=== PATIENT | male | born 1945 | race Caucasian/White ===

== ENCOUNTER → 2016-11-24 | Outpatient (CLI) | payer MEDICARE, OTHER | END | disposition home or self-care (01) | LOC: PCVCIMAG 13:03 | PROVIDERS: ATTEND Internal Medicine Cardiovascular Disease | DX: I25.10 Atherosclerotic heart disease of native coronary artery without angina pectoris (principal); I35.0 Nonrheumatic aortic (valve) stenosis; E78.00 Pure hypercholesterolemia, unspecified; I10 Essential (primary) hypertension; R07.9 Chest pain, unspecified; R11.0 Nausea; R00.1 Bradycardia, unspecified; Z95.5 Presence of coronary angioplasty implant and graft | CPT/HCPCS: 80061; 93005; 93306; G0463 ==

== ENCOUNTER → 2017-06-04 | Outpatient (CLI) | payer MEDICARE, OTHER | END | disposition home or self-care (01) | LOC: PCVCCLINIC 13:36 | PROVIDERS: ATTEND Internal Medicine Cardiovascular Disease | DX: I25.10 Atherosclerotic heart disease of native coronary artery without angina pectoris (principal); E78.00 Pure hypercholesterolemia, unspecified; I35.0 Nonrheumatic aortic (valve) stenosis; I10 Essential (primary) hypertension; R00.1 Bradycardia, unspecified; Z79.82 Long term (current) use of aspirin; Z79.899 Other long term (current) drug therapy | CPT/HCPCS: 80061; 93005; G0463 ==

== ENCOUNTER → 2018-02-09 | Outpatient (CLI) | payer MEDICARE, OTHER | END | disposition home or self-care (01) | LOC: PCVCIMAG 14:37 | DX: I25.10 Atherosclerotic heart disease of native coronary artery without angina pectoris (principal); I35.0 Nonrheumatic aortic (valve) stenosis; I77.9 Disorder of arteries and arterioles, unspecified; I10 Essential (primary) hypertension; E78.00 Pure hypercholesterolemia, unspecified; Z79.82 Long term (current) use of aspirin | CPT/HCPCS: 93005; 93306; G0463 ==

== ENCOUNTER → 2018-09-16 | Outpatient (CLI) | payer MEDICARE, OTHER ==
--- NOTE | 2018-09-16 13:32 | PCVCIMAG ---
EXAM: BILATERAL CAROTID DUPLEX INDICATION: Carotid Occlusive Disease. FINDINGS: Doppler Measurements (centimeters per second): RIGHT: Peak CCA-92, Peak ECA-86, Diastolic ICA-16, Peak ICA-71, ICA/CCA Ratio-0.8. LEFT: Peak CCA-87, Peak ECA-79, Diastolic ICA-14, Peak ICA-82, ICA/CCA Ratio-0.9. RIGHT CAROTID: The carotid bulb has mild plaque. The proximal internal carotid artery shows <40% stenosis. The common carotid artery shows no significant stenosis. The external carotid artery shows no significant stenosis. LEFT CAROTID: The carotid bulb has mild plaque. The proximal internal carotid artery shows <40% stenosis. The common carotid artery shows no significant stenosis. The external carotid artery shows no significant stenosis. Antegrade flow in both vertebral arteries. IMPRESSION: <40% stenosis of the right internal carotid artery with mild plaque. <40% stenosis of the left internal carotid artery with mild plaque. LOC:[place] [id number]
--- NOTE | 2018-09-16 17:31 | PCVCIMAG ---
APPROVED REPORT Study performed: 09/16/2018 13:20:10 EXAM: Comprehensive 2D, Doppler, and color-flow Echocardiogram Patient Location: Echo lab Status: routine BSA: 1.93 HR: 63 bpmBP: 150/82 mmHg Rhythm: NSR Other Information Study Quality: Adequate Risk Factors: Cardiac Risk Factors: HTN Indications CAD severe aortic stenosis 2D Dimensions IVSd: 11.77 (7-11mm)LVOT Diam: 21.49 (18-24mm) LVDd: 39.21 mm PWd: 11.22 (7-11mm)Ascending Ao: 32.17 (22-36mm) LVDs: 26.39 (25-40mm) Left Atrium: 38.75 (27-40mm) Aortic Root: 29.81 mm LV Single Plane 4CH: 66.58 % LV Single Plane 2CH: 71.16 % Biplane EF: 69.8 % Volumes Left Atrial Volume (Systole) Single Plane 4CH: 46.45 mLSingle Plane 2CH: 75.28 mL LA ESV Index: 33.00 mL/m2 Aortic Valve AoV Peak Jasvir.: 4.86 m/s AO Peak Gr.: 94.30 mmHgLVOT Max P.36 mmHg AO Mean Gr.: 56.71 mmHgLVOT Mean P.45 mmHg AO V2 Mean: 3.59 m/sLVOT Max V: 1.13 m/s AO V2 VTI: 135.05 cmLVOT Mean V: 0.72 m/s TRISHA (VTI): 0.77 [id number] V1 VTI: 28.51 cm TRISHA Vmax: 0.84 cm2 SV (LVOT): 103.40 mL Mitral Valve E/A Ratio: 1.5 MV Decel. Time: 269.17 ms MV E Max Jasvir.: 0.78 m/s MV A Jasvir.: 0.52 m/s IVRT: 76.12 ms Pulmonary Valve PV Peak Jasvir.: 1.10 m/sPV Peak Gr.: 4.84 mmHg Pulmonary Vein P Vein S: 0.66 m/sP Vein A: 0.46 m/s P Vein D: 0.78 m/sP Vein A Dur.: 159.2 msec P Vein S/D Ratio: 0.85 Tricuspid Valve TR Peak Jasvir.: 2.96 m/s TR Peak Gr.: 35.07 mmHg Left Ventricle The left ventricle is normal size. There is normal LV segmental wall motion. Mild concentric left ventricular hypertrophy. Left ventricular systolic function is normal. The left ventricular ejection fraction is within the normal range. LVEF is 60-65%. Grade I - abnormal relaxation pattern. Right Ventricle The right ventricle is normal size. The right ventricular systolic function is normal. Atria The left atrium size is normal. The right atrium size is normal. Aortic Valve The aortic valve is severely calcified. Trace aortic regurgitation. There is severe valvular aortic stenosis. Calculated aortic valve area is .8 cm2 with maximum pressure gradient of 94 mmHg and mean pressure gradient of 56 mmHg. Mitral Valve The mitral valve is normal in structure. Trace mitral regurgitation. No evidence of mitral valve stenosis. Tricuspid Valve The tricuspid valve is normal in structure. Mild to moderate tricuspid regurgitation with PAP of 42 mmHg. Pulmonic Valve The pulmonary valve is normal in structure. Trace pulmonic regurgitation. Great Vessels The aortic root is normal in size. IVC is normal in size and collapses >50% with inspiration. Pericardium There is no pericardial effusion. There is no pleural effusion. <Conclusion> The left ventricle is normal size. Mild concentric left ventricular hypertrophy. LVEF is 60-65%. Grade I - abnormal relaxation pattern. The right ventricle is normal size. The left atrium size is normal. The aortic valve is severely calcified. Trace aortic regurgitation. There is severe valvular aortic stenosis. Calculated aortic valve area is .8 cm2 with maximum pressure gradient of 94 mmHg and mean pressure gradient of 56 mmHg. Trace mitral regurgitation. Mild to moderate tricuspid regurgitation with PAP of 42 mmHg. The aortic root is normal in size. There is no pericardial effusion.
== END | disposition home or self-care (01) ==
LOC: PCVCIMAG 13:02
PROVIDERS: ATTEND Internal Medicine Cardiovascular Disease
DX: I65.23 Occlusion and stenosis of bilateral carotid arteries (principal); I07.1 Rheumatic tricuspid insufficiency; I25.10 Atherosclerotic heart disease of native coronary artery without angina pectoris; I10 Essential (primary) hypertension; E78.00 Pure hypercholesterolemia, unspecified; I35.0 Nonrheumatic aortic (valve) stenosis; I77.9 Disorder of arteries and arterioles, unspecified; Z79.82 Long term (current) use of aspirin
CPT/HCPCS: 36415; 80061; 93005; 93306; 93880; G0463

== ENCOUNTER → 2018-10-06 | Outpatient (CLI) | payer MEDICARE, OTHER ==
[~2018-10-06] MED LIST: BENZOCAINE ONE 20% MUCOSAL SPRAY.; IV NORMAL SALINE 500ML BAG 500 ML ONE; MIDAZOLAM HCL/PF 2 MG/2 ML VIAL. ONE; fentaNYL PF VIAL 100 MCG/2 ML VIAL ONE
--- NOTE | 2018-10-06 12:25 | PCVCIMAG ---
APPROVED REPORT Study performed: 10/06/2018 09:06:19 EXAM: Transesophageal Echocardiogram Patient Location: CV Room #: 1 Status: routine BSA: 1.91 HR: 56 bpmBP: 169/78 mmHg Rhythm: NSR Other Information Study Quality: Good Indications Aortic Valve Disease Echo Enhancing Agent Indication: Rule out Shunt Agent(s) / Amount(s) Used: Agitated Saline 10 cc Comments: Negative contrast study for shunt flow. 2D Dimensions LVOT Diam: 21.00 (18-24mm) Sinotubular Junction: 25.00 mm Ascending Ao: 30.00 (22-36mm) Procedure After obtaining informed consent, patient underwent transesophageal echo in the [facility]. Type of Sedation : Conscious Sedation Sedation was administered by Holly Vickers RN. Sedation start time: 09:31 Case end Time: 09:43 Sedation was achieved intravenously with: Versed (3 mg) Fentanyl (75 mcg) Transesophageal probe was inserted and advanced into esophagus without difficulty by Fredy Amaya MD. Echo enhancement indication: R/O Septal defect. Echo enhancement agent administered: Agitated Saline The NICK was performed without complications. Throughout the procedure, the blood pressure, pulse oximetry, cardiac rhythm, and rate were monitored. The patient tolerated the procedure without adverse effects. Recovery from conscious sedation was uneventful and vital signs were stable. Left Ventricle The left ventricle is normal size. There is normal LV segmental wall motion. There is normal left ventricular wall thickness. The left ventricular systolic function is normal. The left ventricular ejection fraction is within the normal range. LVEF is 60-65%. Right Ventricle The right ventricle is normal size. The right ventricular systolic function is normal. Atria The left atrium size is normal. No thrombus is visualized in the left atrium or appendage. No shunting by contrast bubble injection The right atrium size is normal. Aortic Valve Aortic valve is trileaflet, densely calcified leaflets with markedly reduced excursion . No aortic regurgitation is present. Severe aortic stenosis. Mitral Valve Mitral valve leaflets are mildly sclerotic Mild mitral regurgitation. No evidence of mitral valve stenosis. Tricuspid Valve The tricuspid valve is normal in structure. There is no tricuspid valve regurgitation noted. Pulmonic Valve The pulmonary valve is normal in structure. There is no pulmonic valvular regurgitation. Great Vessels The LVOT is 2.1 cm. The Aortic valve root is 2.5 cm . The ascending aorta is 3.0cm. The ascending aorta is normal in size. Aortic arch is normal in caliber. IVC is normal in size and collapses >50% with inspiration. Pericardium There is no pericardial effusion. <Conclusion> The left ventricular systolic function is normal. There is normal LV segmental wall motion. EF 60% No thrombus is visualized in the left atrium or appendage. No shunting by contrast bubble injection Aortic valve is trileaflet, densely calcified leaflets with markedly reduced excursion . Severe aortic stenosis. (Peak 94 mm, mean gradient 56 mm). No insufficiency Mitral valve leaflets are mildly sclerotic. Mild mitral regurgitation. Normal aorta throughout its course. There is no pericardial effusion.
== END | disposition home or self-care (01) ==
LOC: PCVCINTER 09:15
PROVIDERS: ATTEND Internal Medicine
DX: I08.0 Rheumatic disorders of both mitral and aortic valves (principal); I10 Essential (primary) hypertension; E78.5 Hyperlipidemia, unspecified; I25.10 Atherosclerotic heart disease of native coronary artery without angina pectoris; E78.00 Pure hypercholesterolemia, unspecified; Z95.5 Presence of coronary angioplasty implant and graft; Z98.890 Other specified postprocedural states; Z82.49 Family history of ischemic heart disease and other diseases of the circulatory system; Z79.899 Other long term (current) drug therapy; Z79.82 Long term (current) use of aspirin
CPT/HCPCS: 93312; 93325; 99152; J2250; J3010; J7040

== ENCOUNTER → 2018-10-12 | Outpatient (CLI) | payer MEDICARE, OTHER ==
[~2018-10-12] MED LIST changes: -BENZOCAINE ONE 20% MUCOSAL SPRAY.; +DIAZEPAM 10 MG TABLET. ONE; +IOHEXOL 350 MG/ML 100 ML VIAL. ONE; +IOHEXOL 350 MG/ML 50 ML VIAL. ONE; +LIDOCAINE 1% Multi-Dose 20 ML VIAL. ONE; +LIDOCAINE 1%/EPI 1:100,000 20 ML VIAL. ONE; +ONDANSETRON PF 4 MG/2 ML VIAL. ONE; +hydrALAZINE 20 MG/ML VIAL. ONE
--- NOTE | 2018-10-18 11:09 | PCVCINTER ---
APPROVED REPORT Study performed: 10/12/2018 12:37:21 Patient Details Patient Status: Out-Patient Room #: 3 The patient is a 73 year-old Male Event Personnel Huber Elise MD, Greyson Luis RT(R)(), Brooks Eaton RT(R), Rancho Barrera RN Risk Factors Arterial HypertensionDysplipidemia (Type: 1), Hypercholesterolemia, Last Creatanine 0.9 Previous Procedures/Diagnoses Previous PCI, CAD, Valvular heart disease, Hypertension Procedure Narrative The patient was brought electively to the Cardiac Catheterization Laboratory and was prepped and draped in a sterile manner. The right femoral was infiltrated with 1% Lidocaine subcutaneous anesthesia. A Right Heart Catheterization was performed with a 7 Fr. [place]-Aliyah catheter and pressure were recorded. Cardiac outputs were obtained by the Thermal Dilution method. A 6F sheath was inserted into the right femoral artery. Coronary angiography was performed using coronary diagnostic catheters. The right coronary system was accessed and visualized with a JR4 catheter. The left coronary system was accessed and visualized with a JL4 catheter. An aortogram of the ascending aorta was performed. Closure device was deployed with a 6 Fr Mynx. Hemostasis was obtained with manual pressure following sheath removal without any complications. The patient tolerated the procedure well and there were no complications associated with the procedure. There was no hematoma. Hemodynamics The right atrial mean pressure is -7 mmHg. The right ventricular pressure is 36/9 mmHg. The pulmonary artery pressure is 40/15 mmHg with a mean of 24 mmHg. The mean pulmonary capillary wedge pressure is 12 mmHg. The aortic pressure is 134/57 mmHg with a mean of 84 mmHg. The cardiac output and index were assessed using Thermalthermodilution. The cardiac output using thermo method is 4.38 L/min. The cardiac index using thermo method is 2.3 L/min/m2. Conclusion #1 successful right heart catheterization with cardiac output by thermodilution see above hemodynamics #2 supravalvular aortogram revealing normal caliber aorta with mild aortic insufficiency. Aortic valve is severe stenosis not crossed. #3 left main mild distal irregularity giving rise to LAD and circumflex. #4 LAD is moderately disease in the proximal and mid vessel with 30 and 40% irregularity calcification is noted. A mid distal lesion of 50-60% this extends around the apex. Nonocclusive #5 ramus intermedius branch is mild disease proximally with 3040% irregularity #6 circumflex OM nondominant with mild disease in proximal calcification #7 The dominant right coronary artery is a prior stent. There is moderate disease in the mid vessel 40-50% giving rise to the PDA EZE. EZE is a high-grade lesion but relatively small in distribution the PDA is widely patent. Recommendations and plan: CV surgical consultation regarding aortic valve replacement. Consideration of TAVR versus open valve replacement plus or minus bypass graft to LAD.
== END | disposition home or self-care (01) ==
LOC: PCVCINTER 12:52
PROVIDERS: ATTEND Internal Medicine Cardiovascular Disease
DX: I25.10 Atherosclerotic heart disease of native coronary artery without angina pectoris (principal); E78.00 Pure hypercholesterolemia, unspecified; I10 Essential (primary) hypertension; I35.0 Nonrheumatic aortic (valve) stenosis; Z98.890 Other specified postprocedural states; Z95.1 Presence of aortocoronary bypass graft; Z82.49 Family history of ischemic heart disease and other diseases of the circulatory system; Z79.82 Long term (current) use of aspirin; Z79.899 Other long term (current) drug therapy; E72.11 Homocystinuria
CPT/HCPCS: 93456; 93566; 93567; C1751; C1760; C1894; J0360; J1644; J2250; J2405; J3010; J3490; J7040; Q9967; 93460

== ENCOUNTER → 2018-12-22 | Outpatient (CLI) | payer MEDICARE, OTHER | END | disposition home or self-care (01) | LOC: PCVCCLINIC 13:20 | PROVIDERS: ATTEND Internal Medicine Cardiovascular Disease | DX: I25.10 Atherosclerotic heart disease of native coronary artery without angina pectoris (principal); I35.0 Nonrheumatic aortic (valve) stenosis; I10 Essential (primary) hypertension; E78.00 Pure hypercholesterolemia, unspecified; Z95.2 Presence of prosthetic heart valve; Z95.1 Presence of aortocoronary bypass graft | CPT/HCPCS: 93005; G0463 ==

== ENCOUNTER → 2019-03-27 | Outpatient (CLI) | payer MEDICARE, OTHER | END | disposition home or self-care (01) | LOC: PCVCCLINIC 11:20 | PROVIDERS: ATTEND Internal Medicine Cardiovascular Disease | DX: Z29.8 Encounter for other specified prophylactic measures (principal); I25.10 Atherosclerotic heart disease of native coronary artery without angina pectoris; E78.00 Pure hypercholesterolemia, unspecified; I10 Essential (primary) hypertension; I35.0 Nonrheumatic aortic (valve) stenosis; I65.23 Occlusion and stenosis of bilateral carotid arteries; R00.1 Bradycardia, unspecified; Z79.82 Long term (current) use of aspirin; Z79.899 Other long term (current) drug therapy | CPT/HCPCS: 36415; 80061; 93005; G0463 ==

== ENCOUNTER → 2019-05-09 | Outpatient (CLI) | payer MEDICARE, OTHER ==
--- NOTE | 2019-05-09 11:48 | PCVCIMAG ---
APPROVED REPORT Study performed: 05/09/2019 10:42:07 Exam: Stress Echocardiogram Indication: CAD s/p CABG, s/p #23 AVR, htn Patient Location: Echo lab Stress Nurse: Mariana Gonzalez RN Status: routine Ht: 5 ft 7 in HR: 64 bpm BP: 148/84 mmHg Rhythm: NSR Procedure The patient underwent an Exercise Stress Test using the Henry Protocol. Blood pressure, heart rate, and EKG were monitored. An Echocardiogram was performed by ct scan technician in four stages in quad fashion. At peak stress, four selected images were obtained and placed side by side with resting images for comparison. Stress Test Details Stress Test: Exercise stress testing was performed using a Henry protocol. HR Resting HR: 64 bpmMax Heart Rate (APMHR): 145 bpm Max HR Achieved: 116 bpmTarget HR (85% APMHR): 123 bpm % of APMHR: 80 Recovery HR: 67 bpm HR response to stress: Normal HR response to stress BP Resting BP: 148/84 mmHg Max BP: 166/64 mmHg Recovery BP: 160/76 mmHg BP response to stress: Normal blood pressure response to stress. ECG Resting ECG: Sinus Rhythm Stress ECG: Sinus Rhythm ST Change: Normal Arrhythmia: None Recovery ECG: Sinus Rhythm Recovery ST Change: Normal Recovery Arrhythmia: None Clinical Reason for Termination: Maximal effort Stress Symptoms: Dyspnea Exercise duration: 8 min 46 sec Highest Stage Achieved: Stage 3: 3.4 mph at 14% grade. Exercise capacity: 10.1 METs Overall Exercise Capacity for Age: Normal Scale: Active Angina Score: None Pre-Stress Echo The resting Echocardiogram showed normal left ventricular contractility with an estimated Ejection Fraction of about >55%. The resting echocardiogram demonstrated normal wall motion in all wall segments. Post-Stress Echo The stress Echocardiogram showed normal left ventricular contractility with an estimated Ejection Fraction of about 65%. Compared to rest, there were no stress-induced wall motion abnormalities. Clinical No clinical or ECG evidence for ischemia. Conclusion Clinical Response: Non-ischemic Exercise Capacity: Average Stress ECG Response: Non-ischemic Stress Echo Images: Non-ischemic Submaximal study due to inability of the patient to achieve 85% of maximal HR (80% achieved). The left ventricle is normal in size and wall thickness in both the rest and stress images. Mild tricuspid regurgitation with PAP of 36 mmHg. Normally functioning aortic valve replacement #23 Bovine. Mild aortic insufficiency. Mild mitral sclerosis with mild regurgitation and no stenosis. Trace pulmonic regurgitation. Other Information Study Quality: Adequate <Conclusion> Submaximal study due to inability of the patient to achieve 85% of maximal HR (80% achieved). The left ventricle is normal in size and wall thickness in both the rest and stress images. Mild tricuspid regurgitation with PAP of 36 mmHg. Normally functioning aortic valve replacement #23 Bovine. Mild aortic insufficiency. Mild mitral sclerosis with mild regurgitation and no stenosis. Trace pulmonic regurgitation.
== END | disposition home or self-care (01) ==
LOC: PCVCIMAG 10:50
PROVIDERS: ATTEND Internal Medicine Cardiovascular Disease
DX: I08.2 Rheumatic disorders of both aortic and tricuspid valves (principal); I25.10 Atherosclerotic heart disease of native coronary artery without angina pectoris; I10 Essential (primary) hypertension; E78.00 Pure hypercholesterolemia, unspecified; Z95.1 Presence of aortocoronary bypass graft
CPT/HCPCS: 93325; 93351